=== PATIENT | female | born 1995 | race African-American/Black ===

== ENCOUNTER 2023-11-15 17:46 | Emergency (ER) | payer OTHER ==
[~2023-11-15] VITALS: Ht 165.1 cm; Wt 60.4 kg
[2023-11-15] MEDS ORDERED: PYRI50TA8 PO (17:57)
[2023-11-15] MEDS ORDERED: ZOLO25TA PO (17:57)
[2023-11-15] MEDS: ONDANSETRON 4MG 2ML VIAL IV ONE (19:48)
[2023-11-15] MEDS: NS 1,000 ML IV ONE (19:48)
[2023-11-15 20:05] LABS: BASO % 0.2 % (0.0-1.0); EOS # 0.1 10^3/uL (0.0-0.5); EOS % 0.7 % (0.0-3.0); HEMATOCRIT 35.3 % (36.0-47.0); HEMOGLOBIN 12.2 g/dl (12.0-15.5); LYMPH # 1.2 10^3/uL (1.5-5.0); MEAN CORPUSCULAR HEMOGLOBIN 28.2 pg (27.0-33.0); MEAN CORPUSCULAR HGB CONC 34.6 g/dl (32.0-36.5); MEAN CORPUSCULAR VOLUME 81.5 fl (80.0-96.0); MONO # 0.5 10^3/uL (0.0-0.8); MONO % 5.4 % (2.0-8.0); NEUTROPHILS # 6.6 10^3/uL (1.5-8.5); NEUTROPHILS % 79.2 % (36.0-66.0); PLATELET COUNT, AUTOMATED 309 10^3/uL (150-450); RED BLOOD COUNT 4.33 10^6/uL (4.00-5.40); WHITE BLOOD COUNT 8.4 10^3/uL (4.0-10.0)
[2023-11-15 20:35] LABS: ALBUMIN 3.3 G/DL (3.2-5.2); BILIRUBIN,DIRECT 0.1 MG/DL (<0.4); BILIRUBIN,TOTAL 0.5 MG/DL (0.3-1.2); TOTAL PROTEIN 6.8 G/DL (5.7-8.2)
[2023-11-15] MEDS ORDERED: ONDA-282 PO (22:46)
[2023-11-15] MEDS ORDERED: PROM25SU3 PR (22:46)
[2023-11-15 22:52] VITALS: BP 103/63; TEMP 99; O2SAT 96
== END 2023-11-15 22:59 | disposition home or self-care (01) ==
LOC: M ED 17:46
DX: O21.9 Vomiting of pregnancy, unspecified (principal); Z3A.16 16 weeks gestation of pregnancy; Z79.899 Other long term (current) drug therapy
CPT/HCPCS: 76815; 80047; 80076; 81001; 83690; 85025; 87086; 96361; 96374; 99284; J2405